=== PATIENT | male | born 1965 | race Caucasian/White ===

== ENCOUNTER 2022-04-16 17:04 | Emergency (ER) | payer MEDICAID ==
[~2022-04-16] VITALS: Ht 182.9 cm; Wt 63.5 kg
[2022-04-16] MEDS ORDERED: ONDANSETRON 4 MG/2 ML VIAL IV ONE (17:15)
[2022-04-16] MEDS ORDERED: IV NORMAL SALINE 1000 ML BAG IV ONE (17:15)
[2022-04-16 17:27] LABS: HEMATOCRIT 47.3 % (36.7-47.1); MEAN CORPUSCULAR HEMOGLOBIN 30.2 uug (23.8-33.4); MEAN CORPUSCULAR VOLUME 88.8 fL (73.0-96.2); PLATELET COUNT (AUTO) 537 K/uL (152-348)
[2022-04-16 17:31] LABS: CARBON DIOXIDE 23 mmol/L (21-32); CHLORIDE 92 mmol/L (98-107); CREATININE 1.1 mg/dL (0.6-1.3); GLUCOSE 101 mg/dL (74-106); POTASSIUM 4.4 mmol/L (3.5-5.1); UREA NITROGEN, BLOOD 19 mg/dL (7-18)
[2022-04-16 17:36] LABS: ETHANOL 296 MG/DL (0-0)
[2022-04-16 17:45] LABS: ACETAMINOPHEN < 10.0 ug/mL (10-30); ALANINE AMINOTRANSFERASE 234 U/L (16-63); ALKALINE PHOSPHATASE 73 U/L (50-136); ASPARTATE AMINOTRANSFERASE 295 U/L (15-37); BILIRUBIN,DIRECT 0.4 mg/dL (0.0-0.2); TOTAL PROTEIN, SERUM 7.9 g/dL (6.4-8.2)
[2022-04-16] MEDS ORDERED: ONDANSETRON 4 MG/2 ML VIAL ONE (17:53)
--- NOTE | 2022-04-16 19:00 | NUR ---
Received report from [facility].
--- NOTE | 2022-04-16 20:04 | NUR ---
The end times for the Zofran and 1l NS can not be documented by me. The nurse in the previous shift discconected the bag prior to shift change.
--- NOTE | 2022-04-16 20:45 | NUR ---
Patient eloped from facility. Dr. Mendez notified.
== END 2022-04-16 20:45 | disposition left against medical advice (07) ==
LOC: ER 18:02
DX: F10.10 Alcohol abuse, uncomplicated (principal); R45.851 Suicidal ideations
CPT/HCPCS: 80076; 80048; 83735; 85025; 36415; 99284; 96374; 80299; 80320; J2405; J7040; A4663; G0480